=== PATIENT | male | born 1990 | race Caucasian/White ===

== ENCOUNTER 2021-09-15 08:56 | Emergency (ER) | payer MEDICAID ==
[~2021-09-15] VITALS: Ht 172.7 cm; Wt 111.6 kg
[2021-09-15 09:07] VITALS: BP 152/83
--- NOTE | 2021-09-15 09:14 | NUR ---
PT AMBULATED TO BED 9 WITH STEADY GAIT
--- NOTE | 2021-09-15 09:26 | NUR ---
DR CHEN AT BEDSIDE
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
--- NOTE | 2021-09-15 09:27 | NUR ---
XRAY AT BEDSIDE
--- NOTE | 2021-09-15 09:34 | NUR ---
DR CHEN AT BEDSIDE
[2021-09-15] MEDS ORDERED: KETOROLAC 30 MG/ML VIAL IM ONE (09:35)
--- NOTE | 2021-09-15 09:44 | NUR ---
LAB AT BEDSIDE
[2021-09-15 09:50] LABS: EOSINOPHILS # (AUTO) 0.2 K/uL (0-0.4); LYMPHOCYTES # (AUTO) 2.6 K/uL (2.0-11.5); MEAN CORPUSCULAR VOLUME 88.4 fL (80-94); MONOCYTES # (AUTO) 0.6 K/uL (0.8-1.0); MONOCYTES % (AUTO) 7.7 % (1.7-9.3); NEUTROPHILS # (AUTO) 4.8 K/uL (1.8-7.7)
[2021-09-15 09:54] LABS: BASOPHILS % (AUTO) 0.6 % (0.0-2.0); EOSINOPHILS % (AUTO) 2.2 % (0.0-4.0); HEMATOCRIT 45.7 % (36-52); HEMOGLOBIN 15.6 g/dL (12.0-18.0); LYMPHOCYTES % (AUTO) 31.4 % (20.5-51.1); MEAN CORPUSCULAR HEMOGLOBIN 30 pg (27-31); MEAN CORPUSCULAR HGB CONC 34 g/dL (33-37); NEUTROPHILS % (AUTO) 58.1 % (42.2-75.2); PLATELET COUNT (AUTO) 253 K/uL (140-450); RED BLOOD CELL COUNT(AUTO) 5.17 MIL/uL (4.20-6.10); RED CELL DISTRIBUTION WIDTH 13.9 % (11.6-13.7); WHITE BLOOD COUNT (AUTO) 8.2 K/uL (4.8-10.8)
--- NOTE | 2021-09-15 10:07 | NUR ---
PT STATES THAT AFTER MEDICATION PAIN WAS 8/10 NOW 4/10
[2021-09-15 10:23] LABS: ALBUMIN 3.6 g/dL (3.4-5.0); ANION GAP 12.3 (8-16); CARBON DIOXIDE 25.4 mmol/L (21-32); CHLORIDE 103 mmol/L (98-107); GFR ARICAN-AMERICAN 113 mL/min (>90); GLUCOSE 130 mg/dL (74-106); LIPASE 63 U/L (73-393); POTASSIUM 3.7 mmol/L (3.5-5.1); SODIUM SERUM 137 mmol/L (136-145); TOTAL BILIRUBIN 0.4 mg/dL (0.0-1.0); UREA NITROGEN, BLOOD 17 mg/dL (7-18)
[2021-09-15 10:31] LABS: ASPARTATE AMINOTRANSFERASE 26 U/L (15-37)
[2021-09-15] MEDS ORDERED: METH-1681 PO (10:35)
[2021-09-15] MEDS ORDERED: IBUP-2213 PO (10:35)
[2021-09-15 10:51] VITALS: BP 151/78
--- NOTE | 2021-09-15 10:51 | NUR ---
Patient discharged with v/s stable. Written and verbal after care instructions ABOUT NONSPECIFIC CHEST PAIN given and explained. Patient alert, oriented and verbalized understanding of instructions. Ambulatory with to car. All questions addressed prior to discharge. ID band removed. Patient advised to follow up with PMD. Rx of MOTRIN, ROBAXIN given. Patient educated on indication of medication including possible reaction and side effects. Opportunity to ask questions provided and answered.
== END 2021-09-15 10:51 | disposition home or self-care (01) ==
LOC: MED 08:56
DX: R07.89 Other chest pain (principal); Z98.890 Other specified postprocedural states; Z79.1 Long term (current) use of non-steroidal anti-inflammatories (NSAID); Z79.899 Other long term (current) drug therapy
CPT/HCPCS: 36415; 71045; 80053; 83690; 84484; 85025; 93005; 96372; 99285; J1885